=== PATIENT | male | born 1990 | race African-American/Black ===

== ENCOUNTER 2024-10-01 17:07 | Emergency (ER) | payer SELFPAY ==
[2024-10-01] MEDS ORDERED: Acetaminophen 500 MG TAB ONE (18:13)
== END 2024-10-01 18:29 | disposition home or self-care (01) ==
LOC: ERS 17:07
DX: J11.1 Influenza due to unidentified influenza virus with other respiratory manifestations (principal); Z87.891 Personal history of nicotine dependence
CPT/HCPCS: 71046; 87428

== ENCOUNTER 2025-02-10 07:12 | Emergency (ER) | payer SELFPAY ==
[2025-02-10] MEDS ORDERED: Dexamethasone 10 MG/ML VIAL ONE (07:42)
== END 2025-02-10 08:23 | disposition home or self-care (01) ==
LOC: ERS 07:12
DX: U07.1 COVID-19 (principal)
CPT/HCPCS: 87428; 99283; J1100

== ENCOUNTER 2025-05-14 02:37 | Emergency (ER) | payer SELFPAY | END 2025-05-14 03:49 | disposition home or self-care (01) | LOC: ERS 02:37 | DX: R09.81 Nasal congestion (principal); R06.2 Wheezing; Z87.891 Personal history of nicotine dependence ==

== ENCOUNTER 2025-05-15 20:08 | Emergency (ER) | payer SELFPAY ==
[2025-05-15] MEDS ORDERED: Ketorolac Tromethamine 30 MG (1 mL) VIAL ONE (22:51)
[2025-05-15] MEDS ORDERED: Methocarbamol 500 MG TAB PO SCH (23:59)
== END 2025-05-15 23:45 | disposition home or self-care (01) ==
LOC: ERS 20:08
DX: M54.50 Low back pain, unspecified (principal); Z87.891 Personal history of nicotine dependence
CPT/HCPCS: 96372; 99283; J1885

== ENCOUNTER 2025-06-21 19:15 | Emergency (ER) | payer SELFPAY ==
[2025-06-21] MEDS ORDERED: predniSONE 20 MG TAB ONE (19:58)
[2025-06-21 20:45] LABS: #Basophils Less than 0.03 10x3/uL (0.0-0.2); #Eosinophils 0.21 10x3/uL (0.0-0.7); #Monocytes 0.50 10x3/uL (0.11-0.59); #Neutrophils 2.43 10x3/uL (1.40-6.50); %Basophils 0.2 % (0.0-1.0); %Eosinophils 4.9 % (0.0-10.0); %Lymphocytes 26.2 % (21.0-51.0); %Monocytes 11.7 % (0.0-10.0); %Neutrophils 56.8 % (42.0-75.0); Hematocrit 43.9 % (42.0-52.0); Hemoglobin 14.0 g/dL (14.0-18.0); Mean Corpuscular Hemoglobin 25.7 pg (27.0-31.0); Mean Corpuscular Volume 80.6 fL (78.0-98.0); Platelet Count 213 10x3/uL (130-400); Red Blood Cell (RBC) Count 5.45 mill/uL (4.70-6.10); White Blood Cell (WBC) Count 4.28 10x3/uL (4.8-10.8)
[2025-06-21 21:00] LABS: ALT (SGPT) 17 U/L (Less than 45); AST (SGOT) 29 U/L (11-34); Albumin 3.9 g/dL (3.1-4.5); Alkaline Phosphatase 64 U/L (40-110); Anion Gap 12 mmol/L (10-20); BUN (Urea Nitrogen) 11 mg/dL (8.9-20.6); Bilirubin, Total 0.2 mg/dL (0.3-1.2); Calc. Creatinine Clearance 0 mL/min (70-130); Calcium 8.8 mg/dL (7.8-10.44); Carbon Dioxide 26 mmol/L (22-29); Chloride 103 mmol/L (98-107); Globulin 3.5 g/dL (2.4-3.5); Glucose 125 mg/dL (70-105); Magnesium 1.9 mg/dL (1.6-2.6); Potassium 3.4 mmol/L (3.5-5.1); Sodium 138 mmol/L (136-145)
== END 2025-06-21 21:52 | disposition home or self-care (01) ==
LOC: ERS 19:15
DX: J45.909 Unspecified asthma, uncomplicated (principal); J18.9 Pneumonia, unspecified organism; T48.6X6A Underdosing of antiasthmatics, initial encounter; Z91.148 Patient's other noncompliance with medication regimen for other reason
CPT/HCPCS: 71045; 80053; 83735; 83880; 84484; 85025; 93005; J7512